=== PATIENT | female | born 1980 | race Caucasian/White ===

== ENCOUNTER 2023-10-11 10:26 | Emergency (ER) | payer OTHER ==
[~2023-10-11] VITALS: Ht 162.6 cm; Wt 63.5 kg
[2023-10-11 10:50] VITALS: BP 107/73; PULSE 83; RESP 18; TEMP 96; O2SAT 98
[2023-10-11 13:50] LABS: FLU A ANTIGEN POSITIVE (NEGATIVE); FLU B ANTIGEN NEGATIVE (NEGATIVE)
[2023-10-11] MEDS ORDERED: NIRM1TAB9 PO (14:01)
[2023-10-11] MEDS ORDERED: ACET-10509 PO (14:01)
[2023-10-11] MEDS ORDERED: ONDA-188 PO (14:01)
[2023-10-11] MEDS ORDERED: ROBAC PO (14:01)
[2023-10-11] MEDS ORDERED: TAM75 PO (14:01)
[2023-10-11 14:38] VITALS: BP 107/73; PULSE 83; RESP 18; TEMP 96; O2SAT 98
== END 2023-10-11 14:38 | disposition home or self-care (01) ==
LOC: MED 10:26
DX: U07.1 COVID-19 (principal); J10.1 Influenza due to other identified influenza virus with other respiratory manifestations; Z92.25 Personal history of immunosuppression therapy; M06.9 Rheumatoid arthritis, unspecified; Z79.899 Other long term (current) drug therapy
CPT/HCPCS: 71045; 99284

== ENCOUNTER 2023-10-17 18:09 | Emergency (ER) | payer OTHER ==
[~2023-10-17] VITALS: Ht 167.6 cm; Wt 72.6 kg
[~2023-10-17 18:09] MED LIST: ACET-10509 PO; NIRM1TAB9 PO; ONDA-188 PO; ROBAC PO; TAM75 PO
[2023-10-17 19:02] VITALS: BP 112/80; PULSE 84; RESP 18; TEMP 98; O2SAT 98
[2023-10-17] MEDS ORDERED: PROM118S5 PO (20:24)
[2023-10-17] MEDS ORDERED: AMOX1TAB8 PO (20:24)
[2023-10-17] MEDS ORDERED: ALBU0.0912 IH (20:24)
[2023-10-17 20:28] LABS: FLU A ANTIGEN negative (NEGATIVE); FLU B ANTIGEN NEGATIVE (NEGATIVE)
[2023-10-17 20:35] VITALS: BP 112/80; PULSE 84; RESP 18; TEMP 98; O2SAT 98
== END 2023-10-17 20:35 | disposition home or self-care (01) ==
LOC: MED 18:09
DX: J20.9 Acute bronchitis, unspecified (principal); Z20.822 Contact with and (suspected) exposure to COVID-19; M06.9 Rheumatoid arthritis, unspecified; Z79.899 Other long term (current) drug therapy; Z79.2 Long term (current) use of antibiotics
CPT/HCPCS: 71046; 99284